=== PATIENT | female | born 1995 | race Caucasian/White ===

== ENCOUNTER 2021-01-30 06:48 | Outpatient (CLI) | payer OTHER | END 2021-01-30 15:00 | disposition home or self-care (01) | LOC: LAB 06:48 → EDBD 06:48 → LAB 15:00 | PROVIDERS: ATTEND Internal Medicine Endocrinology, Diabetes & Metabolism | DX: Z03.818 Encounter for observation for suspected exposure to other biological agents ruled out (principal) ==

== ENCOUNTER 2021-02-19 06:57 | Outpatient (CLI) | payer OTHER | END 2021-02-19 15:00 | disposition home or self-care (01) | LOC: LAB 06:57 | PROVIDERS: ATTEND Internal Medicine Endocrinology, Diabetes & Metabolism | DX: Z03.818 Encounter for observation for suspected exposure to other biological agents ruled out (principal) ==